=== PATIENT | female | born 1945 | race African-American/Black ===

== ENCOUNTER 2016-08-30 21:24 | Emergency (ER) | payer OTHER ==
[~2016-08-30] VITALS: Ht 170.2 cm; Wt 72.6 kg
[2016-08-30 22:04] LABS: CONDITION Y; DEFINITIVE SEE PRINTOUT; Hematocrit 26.6 % (36.0-46.0); Hemoglobin 8.8 g/dL (12.2-16.2); Mean Corpuscular Hemoglobin 27.7 pg (28.0-32.0); Mean Corpuscular Hgb Conc. 33.2 g/dL (32.0-36.0); Mean Corpuscular Volume 83.4 fL (80.0-100.0); Mean Platelet Volume 7.7 fL (7.4-10.4); Platelet Count (auto) 66 10^3/uL (140-450); Red Cell Distribution Width 19.1 % (11.6-16.0); SUSPECT SEE PRINTOUT; White Blood Cell 11.2 10^3/uL (4.4-10.8)
[2016-08-30 22:09] LABS: Promyelocytes % 0; Reactive Lymphocytes 0
[2016-08-30 22:28] LABS: Albumin 2.1 g/dL (3.4-5.0); BUN/Creatinine Ratio 10.7; Bilirubin, Total 0.5 mg/dL (0.2-1.0); Magnesium 2.2 mg/dL (1.6-2.6); Potassium 4.2 mmol/L (3.5-5.1); Total Protein 8.1 g/dL (6.4-8.2)
[2016-08-30 22:30] LABS: Calcium 13.4 mg/dL (8.5-10.1)
[2016-08-30 23:03] LABS: Metamyelocytes % 4; Myelocytes % 4; Platelet Estimate Decreased
[2016-08-30 23:03] LABS: Urine Bilirubin Negative (Negative); Urine Blood Negative /uL (Negative); Urine Color Yellow (Yellow); Urine Glucose 2+ mg/dL (Normal); Urine Granular Cast FEW /lpf (0); Urine Hyaline Cast FEW /lpf (0 - 2); Urine Ketone Negative (Negative); Urine Mucus FEW (None Seen); Urine Nitrite Negative (Negative); Urine RBC 1 /hpf (0 - 4); Urine Squamous Epithelial Cell FEW /hpf (<5); Urine Urobilinogen Normal (Negative); Urine pH 5.5 (5.0-8.0)
[2016-08-30 23:05] LABS: Anisocytosis Slight; Large Platelets FEW; Polychromasia Slight
[2016-08-31] MEDS ORDERED: cefTRIAXone 1GM/50ML D5W 50 ML IV ONE (02:43)
[2016-08-31 06:03] VITALS: BP 126/64
[2016-09-02] MEDS ORDERED: SENN-58 PO (20:09)
[2016-09-02] MEDS ORDERED: ONDA4TAB5 PO (20:09)
[2016-09-02] MEDS ORDERED: ATOR40TA52 PO (20:09)
[2016-09-02] MEDS ORDERED: HYDR12.56 PO (20:09)
[2016-09-02] MEDS ORDERED: BENA40TA PO (20:09)
[2016-09-02] MEDS ORDERED: AML5T PO (20:09)
[2016-09-02] MEDS ORDERED: METF-372 PO (20:09)
[2016-09-02] MEDS ORDERED: AZIT250T PO (20:09)
== END 2016-08-31 07:30 | disposition home or self-care (01) ==
LOC: EDBD 21:24 → ER 21:35
DX: E87.6 Hypokalemia (principal); N17.9 Acute kidney failure, unspecified; E86.0 Dehydration; I10 Essential (primary) hypertension; E11.9 Type 2 diabetes mellitus without complications; Z85.3 Personal history of malignant neoplasm of breast
CPT/HCPCS: 36415; 74176; 80053; 81001; 82962; 83735; 84484; 85007; 85027; 93005; 94761; 99285; J0696